=== PATIENT | female | born 1955 | race Caucasian/White ===

== ENCOUNTER → 2022-02-06 | Outpatient (CLI) | payer MEDICARE, BC | LOC: HEART 5 07:39 | DX: R55 Syncope and collapse (principal) | CPT/HCPCS: 93306 ==

== ENCOUNTER → 2022-04-09 | Outpatient (CLI) | payer MEDICARE, BC | LOC: HEART 5 08:57 | DX: I42.9 Cardiomyopathy, unspecified (principal); R55 Syncope and collapse; I44.7 Left bundle-branch block, unspecified | CPT/HCPCS: 78452; A9502; J2785 ==

== ENCOUNTER 2022-04-30 06:30 | Outpatient (CLI) | payer MEDICARE, BC ==
[2022-04-30] MEDS ORDERED: FUROSEMIDE20 MG PO (06:52)
[2022-04-30] MEDS ORDERED: LISINOPRIL5 MG PO (06:52)
[2022-04-30] MEDS ORDERED: METOPROLOL SUCC25 MG PO (06:53)
[2022-04-30] MEDS ORDERED: SIMVASTATIN20 MG PO (06:53)
[2022-04-30] MEDS ORDERED: VITAMIN D250 MCG PO (06:54)
[2022-04-30] MEDS ORDERED: FISH OIL PO (06:54)
[2022-04-30 07:09] LABS: HEMOGLOBIN 13.6 gm/dl (12.3-15.3); RED BLOOD COUNT 5.16 M/UL (4.00-5.10); WHITE BLOOD COUNT 6.2 K/UL (4.5-11.0)
[2022-04-30 07:44] LABS: BUN/CREATININE RATIO 24 (0-10)
== END 2022-05-02 10:53 | disposition home or self-care (01) ==
LOC: CATH 06:30
PROVIDERS: Internal Medicine Cardiovascular Disease
DX: I25.118 Atherosclerotic heart disease of native coronary artery with other forms of angina pectoris (principal); I42.8 Other cardiomyopathies; I47.2 Ventricular tachycardia; R55 Syncope and collapse; I10 Essential (primary) hypertension; Z87.891 Personal history of nicotine dependence; Z68.41 Body mass index [BMI] 40.0-44.9, adult; Z79.899 Other long term (current) drug therapy
CPT/HCPCS: 36415; 71045; 80048; 85025; 85610; 93005; 99152; C1769; C1887; C1894; J1644; J2250; J3010; J7030; Q9967

== ENCOUNTER 2022-07-09 09:27 | Outpatient (CLI) | payer MEDICARE, BC ==
[~2022-07-09] VITALS: Ht 162.6 cm; Wt 109.3 kg
[~2022-07-09 09:27] MED LIST: FISH OIL PO; FUROSEMIDE20 MG PO; LISINOPRIL5 MG PO; METOPROLOL SUCC25 MG PO; SIMVASTATIN20 MG PO; VITAMIN D250 MCG PO
[2022-07-09] MEDS ORDERED: HYDROCODON-ACE1 EAC4 PO (15:09)
[2022-07-09] MEDS ORDERED: CLEOCIN HCL300 MG PO (15:09)
[2022-07-09] MEDS ORDERED: LEVOFLOXACIN500 MG PO (15:09)
[2022-07-09] MEDS ORDERED: HYDROCHLOROTHIA25 MG PO (16:24)
[2022-07-09] MEDS ORDERED: FISH OIL 1,0001 EAC1 PO (16:25)
== END 2022-07-10 10:46 | disposition home or self-care (01) ==
LOC: CATH 09:27 → PROG CARE 09:27 → CATH 10:30 → PROG CARE 15:52 → CATH 15:52
DX: I47.2 Ventricular tachycardia (principal); R55 Syncope and collapse; I44.7 Left bundle-branch block, unspecified; I42.0 Dilated cardiomyopathy; I10 Essential (primary) hypertension; Z87.891 Personal history of nicotine dependence; Z79.82 Long term (current) use of aspirin; Z79.899 Other long term (current) drug therapy; Z72.89 Other problems related to lifestyle
CPT/HCPCS: 33249; 93620; 93641; 99152; 99153; C1721; C1730; C1766; C1777; C1898; J1644; J2250; J3010; J3370; J7040; J7050; J7070